=== PATIENT | female | born 1990 | race Caucasian/White ===

== ENCOUNTER 2024-05-06 22:08 | Emergency (ER) | payer BC ==
[~2024-05-06] VITALS: Ht 165.1 cm; Wt 76.7 kg
[2024-05-06] MEDS: ACETAMINOPHEN 500 MG TABLET PO ONE (22:57)
[2024-05-06] MEDS ORDERED: ACETAMINOPHEN 500 MG TABLET ONE (22:59)
[2024-05-06] MEDS ORDERED: ASCORBIC ACID 500 MG TABLET ONE (23:30)
[2024-05-06] MEDS: ASCORBIC ACID 500 MG TABLET PO ONE (23:30)
[2024-05-07 00:02] VITALS: BP 124/80; TEMP 98.2; O2SAT 98
== END 2024-05-07 00:24 | disposition home or self-care (01) ==
LOC: ER 22:18
DX: G44.209 Tension-type headache, unspecified, not intractable (principal); R04.0 Epistaxis
CPT/HCPCS: A4606; A4663; A9150

== ENCOUNTER 2024-12-08 21:57 | Emergency (ER) | payer BC ==
[~2024-12-08] VITALS: Ht 165.1 cm; Wt 74.4 kg
[2024-12-08] MEDS ORDERED: ACETAMINOPHEN 500 MG TABLET ONE (23:44)
[2024-12-08] MEDS: ACETAMINOPHEN 500 MG TABLET PO ONE (23:46)
[2024-12-09 00:04] VITALS: BP 143/94; O2SAT 100
== END 2024-12-09 00:04 | disposition home or self-care (01) ==
LOC: ER 22:03
DX: R51.9 Headache, unspecified (principal); F17.290 Nicotine dependence, other tobacco product, uncomplicated; Z60.2 Problems related to living alone
CPT/HCPCS: 70450; A4606; A4663; A9150